=== PATIENT | female | born 1960 | race Caucasian/White ===

== ENCOUNTER → 2018-01-12 | Outpatient (CLI) | payer OTHER ==
[2018-01-12 09:54] LABS: BLOOD UREA NITROGEN 7 mg/dl (7-18); CREATININE 0.81 mg/dl (0.60-1.20)
== END | disposition home or self-care (01) ==
LOC: C.LAB1850 07:12
PROVIDERS: ATTEND Internal Medicine
DX: Z01.812 Encounter for preprocedural laboratory examination (principal)

== ENCOUNTER → 2018-01-13 | Outpatient (CLI) | payer OTHER ==
[~2018-01-13] MED LIST: GADAVIST IV PRN
--- NOTE | 2018-01-13 14:06 | DIAGNOSTIC IMAGING REPORT ---
BRAIN COMBO FOR MS HISTORY: 57 years-old Female R26.0 Ataxia involving [id number] acute ataxia of the bilateral lower extremities with acute right leg weakness. History of multiple sclerosis. COMPARISON: None available TECHNIQUE: Multiplanar multisequence MRI of the brain was obtained both with and without the use of 10 mL Gadavist FINDINGS: Public Relations Writer localizer images demonstrate no gross abnormality. There is no restricted diffusion to suggest acute or subacute infarction. Midline structures including the corpus callosum, brainstem, optic chiasm, pituitary and pineal glands appear unremarkable on the sagittal T1 series. Degenerative changes are noted about the imaged cervical spine. There is no acute intracranial hemorrhage, midline shift, abnormal extra-axial collections, hydrocephalus or intracranial mass. Moderate degree of patchy T2/FLAIR hyperintensities are seen about the subcortical, deep and periventricular white matter of the cerebral hemispheres bilaterally. Mildly increased T2/FLAIR signal involves the posterior corpus callosum body. No infratentorial foci identified. There is mild cerebral atrophy noted. There is no abnormal intra-axial or extra-axial enhancement identified. The major flow voids appear patent. Mastoid air cells are clear. Moderate polypoid mucosal thickening of the left maxillary sinus. The remaining paranasal sinuses are clear. The skull and soft tissues are within normal limits. IMPRESSION: 1. No acute intracranial abnormality identified. 2. Multifocal T2/FLAIR hyperintensities about the white matter of the cerebral hemispheres bilaterally and also involving the posterior body of the corpus callosum suggests demyelinating disease compatible with patient's history of multiple sclerosis. In a patient of this age group however, superimposed chronic microvascular ischemic changes would be difficult to exclude. 3. No abnormal enhancement. 4. Paranasal sinus disease. The above report was generated using voice recognition software. It may contain grammatical, syntax or spelling errors. Electronically signed by: Michel Valencia M.D. 01/13/2018 2:04 PM Dictated Date/Time: 01/13/2018 1:56 PM
== END | disposition home or self-care (01) ==
LOC: C.MRI 12:47
PROVIDERS: ATTEND Internal Medicine
DX: R26.0 Ataxic gait (principal); J32.8 Other chronic sinusitis